=== PATIENT | male | born 1955 | race Caucasian/White ===

== ENCOUNTER 2024-05-10 07:36 | Emergency (ER) | payer OTHER ==
[~2024-05-10] VITALS: Ht 162.6 cm; Wt 61.0 kg
[~2024-05-10 07:36] MED LIST: AMOX1TAB16 MT; IBUP-1525 MT
[2024-05-10 07:39] VITALS: TEMP 37.4; O2SAT 99
[2024-05-10] MEDS ORDERED: IBUP-2029 MT (09:07)
[2024-05-10] MEDS ORDERED: D-ME473S50 PO (09:07)
[2024-05-10 09:39] VITALS: BP 160/72; PULSE 80; RESP 16
[2024-05-10] MEDS: KETOROLAC 30MG/ML VIAL IM ONE (09:39)
[2024-05-10 10:57] LABS: INFLUENZA TYPE A Presumptive Negative (Pres. Neg.); INFLUENZA TYPE B Presumptive Negative (Pres. Neg.)
== END 2024-05-10 10:06 | disposition home or self-care (01) ==
LOC: ER 07:43
DX: B34.9 Viral infection, unspecified (principal); Z79.899 Other long term (current) drug therapy
CPT/HCPCS: 99284; 71045; 87804 ×2; 96372; J1885